=== PATIENT | female | born 1985 | race Two or more races ===

== ENCOUNTER 2017-11-06 22:08 | Inpatient (IN) | payer MEDICAID ==
[2017-11-06] MEDS ORDERED: LR 1,000 ML IV SCH (23:00)
[2017-11-06] MEDS ORDERED: LR 500 ML IV ONE (23:00)
[2017-11-06 23:22] LABS: PLATELET COUNT 256 10^3/uL (150-400)
--- NOTE | 2017-11-07 00:43 | PDGENHP ---
History and Physical History and Physical: HPI: Patient is a [id number] @ 22 weeks that presents to L&D with complaints of fever and back pain. She states she has had fever all day today-as high as 105. She states she has taken 4grams of tylenol today. She reports nausea but no vomiting. She denies any contractions, LOF, VB. Reports +FM EDC: 03/14/18 which is based on LMP and first trimester US per pt Her is complicated by: h/o UTI, h/o PTD Review of Systems: Constitutional: Denies any fever, chills, or fatigue HEENT: denies any visual changes, difficulty swallowing, hearing loss Cardiovascular: Denies any chest pain, palpitations, leg swelling Respiratory: denies any cough, wheezing, or shortness of breathe GI: Denies any nausea, vomiting, diarrhea, constipation : denies any dysuria, urgency, frequency, vaginal bleeding Musculoskeletal: denies any muscle or bone pain Skin: denies any rashes Neuro: denies any headache, seizures, lightheadedness, dizziness, or loss of consciousness Psychiatric: denies any depression, anxiety, or SI/HI thoughts HISTORY: Previous OB history: x5 (1 PTD), SAB x8 Past medical history: h/o UTI Past surgical history: none per pt Medications: PNV, tylenol Allergies (list reaction): NKDA PHYSICAL EXAM: Constitutional: WN, A&Ox3 HEENT: normocephalic atraumatic, supple Heart: RRR, no murmur Chest: CTA-B Back: +CVA tenderness Abdomen: Soft, nontender, gravid SVE: deferred Extremities: no edema, negative homans sign Neuro: grossly normal Psych: normal affect assessment: +FHTs [address] [place]: none Assessment: 1) [id number] with IUP@ 22wks 2) possible pyelonephritis 3) no evidence of labor Plan: 1) Admit to AP for 23 hr obs 2) IV abx, switch to PO for d/c home 3) urine cx sent/pending 4) anticipate d/c home tomorrow Reviewed with Dr Makcenzie- agrees with plan of care
[2017-11-07] MEDS: diphenhydrAMINE 25 MG CAP PO PRN ×2 (02:23→20:51)
[2017-11-07] MEDS: LR 1,000 ML IV SCH ×2 (11:00→20:43)
[2017-11-07] MEDS: ACETAMINOPHEN 500 MG TAB PO PRN ×2 (14:14→20:42)
[2017-11-07] MEDS ORDERED: ONDANSETRON DISINTEGRATING 4 MG TAB PO PRN (14:21)
--- NOTE | 2017-11-07 18:12 | OBPROG ---
Labor Progress Note Assessment/Plan: Assessment: IUP at 21w6d flank pain with fever, suspected pyelonephritis grand multip h/o mult pyelo in prev pregnancies persistent nausea with Plan: Still with flank pain but less. WBCs slightly less 11/07/17 17:52 Subjective/Intrapartum Course: 11/07/17 17:54 Pt states she's feeling better than yesterday but still achey and describes pain 7/10 but declining pain meds. Slept well after Benadryl during night and all morning until after lunch. Woke up and described pain and nausea and was given Tyl and Zofran and approx 1500 had emesis x 2. Has felt better with nausea after that. Denies dysuria but has felt this back pain for couple weeks. States she's only felt infreq ctxns since admit last noc. GFM and no bld 11/07/17 18:19 Objective: 11/07/17 08:56 - SVE Membranes: Intact - FHR Assessment [place] FHR (bpm): 140 (spot checks q 4 hrs) - Physical Exam General Appearance: WD/WN, alert, mild distress Abdomen: non-tender, soft Back: CVA tenderness (moderate tenderness bilat with palpation) Skin: normal color, warm/dry Neuro/Psych: alert, normal mood/affect Oxytocin Orders Assessment - Pre-Induction/Augmentation Assessment Gestational Age: 21 week(s) and 6 day(s) ICD10 Worksheet Patient Problems: Problems Problem Status Onset Pyelonephritis affecting Acute Anxiety and depression Acute History of hyperemesis gravidarum Acute Increased BMI Acute MRSA (methicillin resistant 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 - ICD10 Problem Qualifiers (1) Pyelonephritis affecting
[2017-11-07] MEDS: ONDANSETRON 4 MG/2 ML VIAL IVP PRN (18:34)
[2017-11-08] MEDS: ONDANSETRON 4 MG/2 ML VIAL IVP PRN (06:44)
[2017-11-08 06:51] LABS: PLATELET COUNT 229 10^3/uL (150-400)
[2017-11-08] MEDS: ACETAMINOPHEN 500 MG TAB PO PRN (12:07)
[2017-11-08] MEDS ORDERED: oxyCODONE IR 5 MG TAB PO PRN (12:38)
--- NOTE | 2017-11-08 14:31 | SOAPPROG ---
SOAP Progress Note Assessment/Plan: Assessment: IUP at 21w6d flank pain with fever, suspected pyelonephritis No evidence of renal calculi grand multip h/o mult pyelo in prev pregnancies persistent nausea with Plan: cont to monitor encourage voiding PO hydrate consulted with hospitalist and ID- recommended decreasing narcotic use and not switching to PO abx until sensitivities back change to PO pain meds, tylenol scheduled will change to PO abx once urine C&S back will consult with ID for best abx choice plan d/c home tomorrow 11/08/17 15:20 Subjective: Pt been OOB and ambulating without difficulty. She denies any fevers/chills today. She does report some back pain- but relieved with pain meds. She reports mild intermittent nausea- no vomiting. She denies any dysuria, but reports frequency and urgency. Her last void was at 0600, bladder was drained via straight cath for approx 600mL. She denies any contractions, LOF, VB. She reports +FM. Objective: Vital Signs Temp Pulse Resp BP Pulse Ox 36.7 C 78 16 92/63 L 95 11/08/17 13:45 11/08/17 13:45 11/08/17 13:45 11/08/17 13:45 11/08/17 13:45 Laboratory Results 11/08/17 06:40 11/07/17 11/08/17 11/09/17 05:59 05:59 05:59 Output Total 500 100 Balance -500 -100 Physical Exam - Physical Exam General Appearance: WD/WN, alert, no apparent distress Respiratory: normal breath sounds Cardiac/Chest: regular rate, rhythm Abdomen: soft Pelvic Exam: deferred ICD10 Worksheet Patient Problems: Problems Problem Status Onset Pyelonephritis affecting Acute Anxiety and depression Acute History of hyperemesis gravidarum Acute Increased BMI Acute MRSA (methicillin resistant 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
[2017-11-08] MEDS: ACETAMINOPHEN 500 MG TAB PO SCH ×2 (17:33→23:59)
--- NOTE | 2017-11-08 20:40 | SOAPPROG ---
SOAP Progress Note Assessment/Plan: Assessment:32 yo A8 at 22w1d admitted late on 11/06/17 with presumed pyelonephritis - clinically improving, but now with urinary retention. HD#2 1) Continue ceftriaxone IV until urine culture sensitivities back. To receive 3rd dose tonight. Plan transition to po abx with choice assisted by ID. WBC has been decreasing and is in normal range, will not repeat in AM. Continue with scheduled Tylenol. 2) Urinary retention - could not void this afternoon, catheterized for 600ml, and has now been 6 hours and has not voided again. Has been taking in po food and liquid. Will try to void now - if unable, will straight catheterize again, and may need to consider sending home with intermittent self catheterization supplies and make sure is comfortable doing this. Avoiding narcotic use as could contribute to retention. 3) Normal renal US today - no evidence of stone or hydronephrosis Kinga Howard MD, [facility], [place] 11/08/17 20:39 Subjective: Pt resting comfortably in bed. Has been eating and drinking water without nausea. Pain has significantly improved since admission, though still has some back discomfort. Has tried voiding twice since catheterized this afternoon - unable to. Has the urge but just unable to void. Unusual for her. + FM intermittently through the day. No VB or LOF. Occasional contraction, but mild and very irregular. Objective: Vital Signs Temp Pulse Resp BP Pulse Ox 36.6 C 83 20 94/70 L 98 11/08/17 16:15 11/08/17 16:15 11/08/17 16:15 11/08/17 16:15 11/08/17 16:15 Laboratory Results 11/08/17 06:40 11/08/17 17:40 11/07/17 11/08/17 11/09/17 05:59 05:59 05:59 Intake Total 650 Output Total 500 725 Balance -500 -75 Tm past 24 hour 37.2 Gen - pleasant female, nontoxic, resting comfortably, next to dinner tray and chatting with daughter. CV - RRR chest - CTAB abd - soft, gravid, fundus at umbilicus, NT back - mild CVAT L > R ext - calves NT, no edema - Time Spent With Patient Time Spent With Patient: 10min - Pending Discharge Pending Discharge Within 24 Hours: Yes Pending Discharge Within 48 Hours: Yes Pending Discharge Date: 11/09/17 Pending Discharge Time: 11:00 (need urine culture sensitivities results prior to discharge) ICD10 Worksheet Patient Problems: Problems Problem Status Onset Pyelonephritis affecting Acute Anxiety and depression Acute History of hyperemesis gravidarum Acute Increased BMI Acute MRSA (methicillin resistant 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
[2017-11-09] MEDS: diphenhydrAMINE 25 MG CAP PO PRN (03:01)
[2017-11-09] MEDS: ACETAMINOPHEN 500 MG TAB PO SCH ×3 (05:47→17:47)
--- NOTE | 2017-11-09 11:15 | SOAPPROG ---
SOAP Progress Note Assessment/Plan: Assessment: Assessment:32 yo A8 at 22w2d admitted late on 11/06/17 with presumed pyelonephritis and urinary retention - clinically improving 1) Discontinue ceftriaxone IV - switch to Keflex 500mg QID for 10d. Spoke to micro and ID re this. They will run susceptibilities on dominant Ecoli species and ID will f/u on this. WBC has been decreasing and is in normal range, will not repeat in AM. Continue with scheduled Tylenol. 2) Urinary retention - could not void yesterday afternoon, catheterized x2. Voiding normally this AM. 3) Normal renal US yest - no evidence of stone or hydronephrosis. Plan: Dc home today. F/u this week with primary OB provider. We'd be happy to see her at [facility] as well. Subjective: Feeling much better today - no fevers or chills overnight, back/flank pain resolved. Objective: Vital Signs Temp Pulse Resp BP Pulse Ox 36.3 C 83 16 92/63 L 94 11/09/17 08:00 11/09/17 08:00 11/09/17 08:00 11/09/17 08:00 11/09/17 08:00 Microbiology 11/07/17 00:02 Urine Culture - Final Urine,Clean Catch Gram Neg Rods 3 Or More Types Enterococcus Species One [place] Type Laboratory Results 11/08/17 06:40 11/08/17 17:40 11/08/17 11/09/17 11/10/17 05:59 05:59 05:59 Intake Total 1850 Output Total 645 2260 737 Balance -500 -875 -425 - Time Spent With Patient Time Spent With Patient: 20 minutes - Pending Discharge Pending Discharge Within 24 Hours: Yes Pending Discharge Date: 11/28/17 Pending Discharge Time: 11:00 Physical Exam - Physical Exam General Appearance: alert, no apparent distress Respiratory: No respiratory distress Abdomen: non-tender, soft ICD10 Worksheet Patient Problems: Problems Problem Status Onset Anxiety and depression Acute History of hyperemesis gravidarum Acute Increased BMI Acute MRSA (methicillin resistant 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
[2017-11-09 12:32] VITALS: BP 98/69
[2017-11-09] MEDS: CEPHALEXIN 500 MG CAP PO SCH ×2 (13:08→17:47)
--- NOTE | 2017-11-09 16:07 | OBGCSDC ---
General Delivery Information - General Info : 14 Para: 5 Abortions: 8 L&D Analgesia/Anesthesia Type: None Admission Date: 11/08/17 Labs: Hct 33.2 % (38.0-47.0) L 11/08/17 06:40 - Hospital Course Antepartum: HPI: Patient is a [id number] @ 22 weeks that presents to L&D with complaints of fever and back pain. She states she has had fever all day today-as high as 105. She states she has taken 4grams of tylenol today. She reports nausea but no vomiting. She denies any contractions, LOF, VB. Reports +FM EDC: 03/14/18 which is based on LMP and first trimester US per pt Her is complicated by: h/o UTI, h/o PTD Admitted, started on IV Ceftriaxone. Transitioned on HD3 to PO Kelfex and discharged with plan to f/u with primary OB provider. No fevers after abx and back/flank pain improved quickly. Will f/u on susceptibilties to Ecoli species. Intrapartum: 11/07/17 17:54 Pt states she's feeling better than yesterday but still achey and describes pain 7/10 but declining pain meds. Slept well after Benadryl during night and all morning until after lunch. Woke up and described pain and nausea and was given Tyl and Zofran and approx 1500 had emesis x 2. Has felt better with nausea after that. Denies dysuria but has felt this back pain for couple weeks. States she's only felt infreq ctxns since admit last noc. GFM and no bld 11/07/17 18:19 [place] Data JUVENTINO: 03/14/18 Gestational Age: 24 week(s) and 5 day(s) Discharge Information - Discharge Information Prescriptions: Cephalexin [Keflex (*)] 500 mg PO Q6HRS 10 Days #40 cap Condition: Good Instruction/Follow Up: See Instruction Sheet, One Week (W primary OB provider)
== END 2017-11-09 17:50 | disposition home or self-care (01) | DRG 566 ==
LOC: FLD 22:08 → FOB 11-07 19:05 → OBSVTOIN 11-08 15:17
PROVIDERS: ADMIT Advanced Practice Midwife; ATTEND Obstetrics & Gynecology
DX: O23.02 Infections of kidney in pregnancy, second trimester (principal); O99.89 Other specified diseases and conditions complicating pregnancy, childbirth and the puerperium; R33.8 Other retention of urine; B96.29 Other Escherichia coli [E. coli] as the cause of diseases classified elsewhere; O09.42 Supervision of pregnancy with grand multiparity, second trimester; Z3A.22 22 weeks gestation of pregnancy
CPT/HCPCS: G0378; J0696; J2270; J2405

== ENCOUNTER 2018-03-25 10:57 | Emergency (ER) | payer MEDICAID ==
--- NOTE | 2018-03-25 13:26 | EDPHY ---
H & P Stated Complaint: RLE cramping Time Seen by Provider: 03/25/18 12:00 HPI/ROS: CHIEF COMPLAINT: Right calf pain HISTORY OF PRESENT ILLNESS: 32-year-old female 3 weeks presents with right calf pain. Onset of right calf pain 1 week ago, gradually increasing. The pain is moderate and increases with walking. Today, the pain was severe with walking. No associated swelling, redness, chest pain or shortness of breath. No recent injury and no prior history of VTE. REVIEW OF SYSTEMS: complete 10 point ROS reviewed and is negative except for the noted elements in the HPI Source: Patient - Personal History Current Tetanus/Diphtheria Vaccine: Unsure Current Tetanus Diphtheria and Acellular Pertussis (TDAP): Unsure - Medical/Surgical History Hx Asthma: No Hx Chronic Respiratory Disease: No Hx Diabetes: No Hx Cardiac Disease: No Hx Renal Disease: No Hx Cirrhosis: No Hx Alcoholism: No Hx HIV/AIDS: No Hx Splenectomy or Spleen Trauma: No Other PMH: D&C 2003, GALLSTONES, GALLBLADDER REMOVED, HX OF ANXIETY & DEPRESSION PER EMR, BUT PT DENIES. HYPEREMESIS, 15 WEEKS ; CURRENTLY BEING TX'D FOR BLADDER INFECT; HX OF SUBCHORIONIC HEMORRHAGE EARLY OCTOBER 2017; 8 SABs; HX FX R ELBOW, AGE 10;NO PROB W/ ANESTH - Social History Smoking Status: Never smoked Alcohol Use: Sober Drug Use: None - Physical Exam Exam: General Appearance: Alert, pleasant Eyes: Pupils equal and round, no conjunctival pallor or injection ENT, Mouth: Mucous membranes moist Neck: Normal inspection Respiratory: Lungs are clear to auscultation Cardiovascular: Regular rate and rhythm Gastrointestinal: Abdomen is soft and nontender Neurological: A&O, nonfocal, normal gait Skin: Warm and dry, no rash Extremities: Diffuse calf tenderness, no pedal edema Psychiatric: Mood and affect normal Constitutional: Initial Vital Signs Temperature (C) 36.6 C 03/25/18 11:06 Heart Rate 84 03/25/18 11:06 Respiratory Rate 16 03/25/18 11:06 Blood Pressure 125/74 H 03/25/18 11:06 O2 Sat (%) 95 03/25/18 11:06 O2 Delivery Mode Room Air Allergies/Adverse Reactions: No Known Allergies Allergy (Verified 03/25/18 11:05) Home Medications: Medication Instructions Recorded Vit 1 tab PO DAILY20 11/03/11 Enoxaparin [Lovenox 80 MG (*)] 80 mg SQ Q12H #14 syr 03/25/18 Medical Decision Making - Diagnostics Imaging Results: Extremity Venous Study 03/25/18 11:59 Impression: Thrombus in the gastrocnemius veins in the mid right calf, which are considered deep. Findings discussed with YANNI PATEL 03/25/2018 at 12:52. Imaging: Discussed imaging studies w/ call worker Radiologist ED Course/Re-evaluation: This patient presents with right lower extremity pain, concerning for DVT. Ultrasound of the right lower extremity reveals a DVT. This is a symptomatic DVT and anticoagulation is indicated. Results discussed with the patient. Risks and benefits of anticoagulation discussed and the patient agrees to anticoagulation. She is currently . I will start her on Lovenox. Lovenox 80 mg subcu given. Plan to transition to Coumadin as outpatient. She does not have a primary care physician so the outpatient doc on-call was consulted for follow-up. d/w Dr. Miranda, will see pt in office tomorrow. Rx for Lovenox written. Differential Diagnosis: includes though not limited to strain, tendinitis, cellulitis, PE, - Data Points Medications Given: Discontinued Medications Enoxaparin Sodium (Lovenox) 80 mg SC EDNOW ONE Stop: 03/25/18 13:28 Last Admin: 03/25/18 13:59 Dose: 80 mg Departure - Departure Disposition: Home, Routine, Self-Care Clinical Impression: DVT (deep venous thrombosis) Condition: Good Instructions: Enoxaparin (By injection), Deep Vein Thrombosis (ED) Additional Instructions: Take the medications as prescribed. Return for worsening symptoms or any concerns. Referrals: Alexis Miranda DO [Doctor of Osteopathy] - As per Instructions (Dr. Miranda's office will call you this afternoon to set up an appointment for tomorrow.) Prescriptions: Enoxaparin [Lovenox 80 MG (*)] 80 mg SQ Q12H #14 syr
[2018-03-25] MEDS ORDERED: ENOXAPARIN 80 MG/0.8 ML SYR SC ONE (13:27)
[2018-03-25 14:10] VITALS: BP 118/72
== END 2018-03-25 14:12 | disposition home or self-care (01) ==
DX: O87.1 Deep phlebothrombosis in the puerperium (principal); I82.491 Acute embolism and thrombosis of other specified deep vein of right lower extremity
CPT/HCPCS: J1650